=== PATIENT | male | born 1985 | race Hispanic/Latino ===

== ENCOUNTER 2024-04-17 16:06 | Emergency (ER) | payer BC ==
[~2024-04-17] VITALS: Ht 182.9 cm; Wt 181.4 kg
[2024-04-17 16:09] VITALS: TEMP 98.2
[2024-04-17] MEDS ORDERED: KETOROLAC TROMETHAMINE 60 MG/2 ML VIAL ONE (19:19)
[2024-04-17] MEDS ORDERED: HYDROCODON-ACE1 EA12 PO ×2 (19:21→20:21)
[2024-04-17] MEDS ORDERED: KETOROLAC TROME10 MG PO (19:21)
[2024-04-17] MEDS ORDERED: ONDANSETRON ODT4 MG PO (19:21)
[2024-04-17 19:27] VITALS: PULSE 79; RESP 18
[2024-04-17] MEDS: KETOROLAC TROMETHAMINE 60 MG/2 ML VIAL IM ONE (19:27)
[2024-04-17 20:20] VITALS: BP 140/84; PULSE 71; RESP 18; TEMP 98.3; O2SAT 98
== END 2024-04-17 19:33 | disposition home or self-care (01) ==
LOC: ER 18:08
DX: R10.32 Left lower quadrant pain (principal); N20.2 Calculus of kidney with calculus of ureter; R11.2 Nausea with vomiting, unspecified; I10 Essential (primary) hypertension; K76.0 Fatty (change of) liver, not elsewhere classified
CPT/HCPCS: 74176; 99283; J1885

== ENCOUNTER 2024-04-20 16:14 | Emergency (ER) | payer BC ==
[~2024-04-20] VITALS: Ht 182.9 cm; Wt 181.4 kg
[~2024-04-20 16:14] MED LIST: HYDROCODON-ACE1 EA12 PO; KETOROLAC TROME10 MG PO; ONDANSETRON ODT4 MG PO
[2024-04-20 16:26] VITALS: TEMP 98.4
[2024-04-20 17:31] LABS: BASOPHILS % 0.3 % (0.0-1.0); EOSINOPHILS # (AUTO) 0.1 (0.0-0.4); EOSINOPHILS % 1.3 % (0.0-6.0); HEMATOCRIT 39.8 % (38.2-49.6); HEMOGLOBIN 13.3 g/dL (14.0-18.0); LYMPHOCYTES # (AUTO) 1.9 (1.0-3.2); LYMPHOCYTES % 20.3 % (18.0-39.1); MEAN CORPUSCULAR HEMOGLOBIN 29.4 pg (28-32); MEAN CORPUSCULAR HGB CONC 33.4 g/dL (31-35); MEAN CORPUSCULAR VOLUME 88.1 fL (81-99); MONOCYTES # (AUTO) 0.8 (0.2-0.8); MONOCYTES % 8.6 % (4.4-11.3); NEUTROPHILS # (AUTO) 6.3 (2.1-6.9); PLATELET COUNT 195 x10e3/uL (140-360); RED BLOOD COUNT 4.52 x10e6/uL (4.3-5.7); RED CELL DISTRIBUTION WIDTH 13.1 % (11.7-14.4)
[2024-04-20 17:40] LABS: CLARITY,URINE CLEAR (CLEAR); COLOR,URINE YELLOW (YELLOW); GLUCOSE, URINE NEGATIVE (NEGATIVE); KETONES,URINE NEGATIVE (NEGATIVE); LEUKOCYTE ESTERASE ,URINE NEGATIVE (NEGATIVE); NITRITE,URINE NEGATIVE (NEGATIVE); PH,URINE 6 (5 - 7); PROTEIN,URINE DIPSTICK NEGATIVE (NEGATIVE); URINE UROBILINOGEN 1 mg/dL (0.2 - 1)
[2024-04-20 17:41] LABS: BILIRUBIN,URINE NEGATIVE (NEGATIVE)
[2024-04-20 17:57] LABS: BACTERIA,URINE FEW /HPF; EPITHELIAL CELLS,URINE MANY /LPF; MUCUS,URINE MODERATE; RBC,URINE 0-5 /HPF (0-5); WBC,URINE (MAN) 0-5 /HPF (0-5)
[2024-04-20] MEDS: PROMETHAZINE 12.5MG/ NACL 0.9% 12.5 MG/50 ML BAG IV ONE (18:01)
[2024-04-20] MEDS: SODIUM CHLORIDE 0.9% 1000ML 1,000 ML IV STA (18:01)
[2024-04-20 18:09] LABS: ALBUMIN 3.5 g/dL (3.5-5.0); ANION GAP 12.4 mmol/L (8-16); BILIRUBIN,TOTAL 0.9 mg/dL (0.2-1.2); CALCIUM 8.9 mg/dL (8.4-10.2); CREATININE, SERUM 1.19 mg/dL (0.72-1.25); MAGNESIUM 1.9 MG/DL (1.3-2.1); POTASSIUM 4.4 mmol/L (3.5-5.1)
[2024-04-20] MEDS ORDERED: FLOMAX0.4 MG PO (19:57)
[2024-04-20] MEDS ORDERED: METOCLOPRAMIDE10 MG PO (19:57)
[2024-04-20] MEDS ORDERED: HYDROCODON-ACE1 EA12 PO (19:57)
[2024-04-20 20:25] VITALS: PULSE 75; RESP 20; O2SAT 98
== END 2024-04-20 20:32 | disposition home or self-care (01) ==
LOC: ER 16:55
DX: R11.2 Nausea with vomiting, unspecified (principal); N20.1 Calculus of ureter; R10.9 Unspecified abdominal pain; I10 Essential (primary) hypertension; Z87.442 Personal history of urinary calculi
CPT/HCPCS: 36415; 74176; 80053; 81001; 83735; 85025; 99284; J2470; J2550; J7030